=== PATIENT | male | born 1985 | race Caucasian/White ===

== ENCOUNTER 2017-04-18 01:20 | Emergency (ER) | payer SELFPAY ==
[2017-04-18 01:26] VITALS: RESP 20; TEMP 98.4; O2SAT 97
[2017-04-18 02:30] VITALS: BP 126/95; PULSE 98
== END 2017-04-18 01:56 | disposition home or self-care (01) | DRG 556 ==
LOC: ED 01:20
DX: M25.561 Pain in right knee (principal); X50.1XXA Overexertion from prolonged static or awkward postures, initial encounter
CPT/HCPCS: 99282